=== PATIENT | female | born 1985 | race Caucasian/White ===

== ENCOUNTER 2017-03-17 20:45 | Emergency (ER) | payer MEDICAID, OTHER ==
[2017-03-17 20:57] VITALS: BP 120/68
[2017-03-17] MEDS ORDERED: Ondansetron ODT TAB* 4 MG ONE (21:18)
[2017-03-17] MEDS ORDERED: Ondansetron ODT TAB* 4 MG SL ONE (21:19)
--- NOTE | 2017-03-17 21:58 | UC ---
Mariluz Lyons Gabriel, scribed for Haseeb Morillo MD on 03/17/17 at 2110 . Abdominal Pain Female HPI - HPI Summary HPI Summary: This patient is a 31 year old F presenting to [facility] with a chief complaint of n /v since 1500 today. The patient rates the pain 6/10 in severity. Patient reports CARSON, CP, pain on inspiration, ABD pain, photophobia, and tingling in her right forearm. Patient denies jaw pain, diarrhea, and fever. She had some episodes of n/v/d yesterday but without the new symptoms. Patient has a history of migraines and palpitations and hasnt taken her Cardizem in two days due to her vomiting. - History of Current Complaint Chief Complaint: UCGI Stated Complaint: nausea, and vomiting Time Seen by Provider: 03/17/17 20:59 Hx Obtained From: Patient Hx Last Menstrual Period: 03/08/17 Onset/Duration: Lasting Hours, Still Present Severity Initially: Mild Severity Currently: Moderate Pain Intensity: 6 Pain Scale Used: 0-10 Numeric Location: Diffuse Radiates: No Associated Signs and Symptoms: Positive: Nausea, Vomiting, Other: - CARSON, CP, pain on inspiration, ABD pain, photophobia, and tingling in her right forearm Allergies/Adverse Reactions: Allergies Allergy/AdvReac Type Severity Reaction Status Date / Time Topiramate [From Topamax] Allergy Severe NUMBNESS Verified 03/17/17 20:57 IN LEGS Tramadol Allergy Severe Hallucinati Verified 03/17/17 20:57 ons Home Medications: Home Medications Dicyclomine CAP* [Bentyl CAP*] 03/17/17 [History] Diltiazem TAB* [Cardizem 30 MG Tab*] 30 mg PO BID 03/17/17 [History Confirmed ] Magnesium [Magnesium 400 mg] 1 tab PO BID 03/17/17 [History Confirmed 03/17/17] Omeprazole CAP* [Prilosec CAP* 20 MG] 40 mg PO DAILY 03/17/17 [History Confirmed 03/17/17] Ondansetron TAB* [Zofran 4 MG Tab*] PRN 03/17/17 [History] Probiotic Product [Acidophilus] 1 cap PO DAILY 03/17/17 [History Confirmed 03/17] Riboflavin [Vitamin B-2] 03/17/17 [History] metroNIDAZOLE TAB* [Flagyl 250 mg TAB*] 4 tab PO ONCE 03/17/17 [History Confirmed 03/17/17] PMH/Surg Hx/FS Hx/Imm Hx Other Cardiovascular History: palpitations Other GI/ History: gastroparesis Neurological History: Migraine Other History Of: Negative For: HIV, Hepatitis B, Hepatitis C - Surgical History Surgical History: Yes Surgery Procedure, Year, and Place: 2 C-SECTIONS - Family History Known Family History: Positive: Cardiac Disease, Hypertension, Diabetes Negative: Renal Disease, Respiratory Disease, Seizure Disorder, Blood Disorder - Social History Occupation: Employed Full-time Alcohol Use: Occasionally Substance Use Type: None Smoking Status (MU): Never Smoked Tobacco Review of Systems Respiratory: Other - pain on inspiration Cardiovascular: Palpitations, Chest Pain, Other Gastrointestinal: Abdominal Pain, Vomiting, Nausea Neurological: Headache, Other - tingling in her right arm All Other Systems Reviewed And Are Negative: Yes Physical Exam Triage Information Reviewed: Yes Appearance: Ill-Appearing, Pain Distress Vital Signs: Initial Vital Signs Temp 97.9 F 03/17/17 20:52 Pulse 74 03/17/17 20:52 Resp 16 03/17/17 20:52 BP 120/68 03/17/17 20:52 Pulse Ox 99 03/17/17 20:52 Neck: Positive: Supple Respiratory: Positive: Chest non-tender, Lungs clear, Normal breath sounds, No respiratory distress Cardiovascular: Positive: RRR, No Murmur Abdomen Description: Positive: Other: - tender upper abdomen Musculoskeletal: Positive: ROM Intact Neurological: Positive: Muscle Tone Normal Psychological: Positive: Age Appropriate Behavior Skin Exam: Normal Diagnostics - EKG Cardiac Rate: NL Cardiac Rhythm: Sinus: Normal - at 70 bpm , Other Rhythm: Normal - No STEMI, T wave flat in V2 V3 AVL Abd Pain Female Course/Dx - Course Course Of Treatment: 31 yr old with abdominal pain, chest pain and sob with some t wave flat precordium. Signed out AMA withrefusal transport to the ER for these symptoms. - Differential Dx/Diagnosis Provider Diagnoses: chest pain. abdominal pain Discharge - Discharge Plan Condition: Guarded Disposition: AGAINST MEDICAL ADVICE Referrals: Robert Luevano MD [Primary Care Provider] - The documentation as recorded by the Mariluz sanchez Gabriel accurately reflects the service I personally performed and the decisions made by Ilia adame Walter, MD.
== END 2017-03-17 21:25 | disposition left against medical advice (07) ==
LOC: UCEAST 20:45
DX: R07.9 Chest pain, unspecified (principal); R10.9 Unspecified abdominal pain; R00.2 Palpitations; K31.84 Gastroparesis; Z88.5 Allergy status to narcotic agent
CPT/HCPCS: 93005; 99212; A9270-GY; G0463